=== PATIENT | male | born 1990 | race Two or more races ===

== ENCOUNTER → 2020-06-04 | Emergency (ER) | payer SELFPAY ==
[~2020-06-04] VITALS: Ht 177.8 cm; Wt 81.6 kg
[~2020-06-04] MED LIST: MORPHINE SULFATE 4 MG/ML SYR/VIAL IV ONE; PANTOPRAZOLE 40 MG/10 ML VIAL INJ IV STA; PROCHLORPERAZINE EDISYLATE 5 MG/ML 2ML VIAL IV ONE; SODIUM CHLORIDE 0.9% 1,000 ML IVB ONE
[2020-06-04 11:49] LABS: Basophils # (auto) 0 10 ^3/uL (0-0.2); Basophils % (auto) 0.3 % (0.0-2.0); Eosinophils # (auto) 0 10 ^3/uL (0-0.8); Eosinophils % (auto) 0.3 % (0.0-7.0); Hematocrit 41.9 % (41.0-53.0); Hemoglobin 14.1 g/dL (13.5-17.5); Lymphocytes # (auto) 0.9 10 ^3/uL (0.4-5.4); Lymphocytes % (auto) 13.3 % (10.0-50.0); Mean Corpuscular Hemoglobin 29.4 pg (28.0-32.0); Mean Corpuscular Hgb Conc. 33.7 g/dL (32.0-36.0); Mean Corpuscular Volume 87.2 fL (80.0-100.0); Monocytes # (auto) 0.3 10 ^3/uL (0-1.3); Monocytes % (auto) 4.7 % (0.0-12.0); Neutrophils # (auto) 5.3 10 ^3/uL (1.6-8.6); Neutrophils % (auto) 81.4 % (37.0-80.0); Nucleated Red Blood Cells % 0.1 %; Platelet Count (auto) 194 10^3/uL (140-450); Red Blood Cells 4.81 10^6/uL (4.5-5.90); Red Cell Distribution Width 13.3 % (11.8-14.3); White Blood Cell 6.5 10^3/uL (4.4-10.8)
[2020-06-04 12:07] LABS: Potassium 3.4 mmol/L (3.5-5.1)
[2020-06-04 12:12] LABS: Albumin 4.5 g/dL (3.4-5.0); BUN/Creatinine Ratio 10.2; Bilirubin, Total 0.7 mg/dL (0.2-1.0); Total Protein 7.5 g/dL (6.4-8.2)
[2020-06-04 15:32] VITALS: BP 117/70
== END | disposition home or self-care (01) ==
LOC: ER 10:54 → EDBD 10:54
DX: F12.188 Cannabis abuse with other cannabis-induced disorder (principal); R11.2 Nausea with vomiting, unspecified; R10.13 Epigastric pain
CPT/HCPCS: 36415; 80053; 83690; 85025; 96361; 96374; 96375; 99284; C9113; J0780; J2270; J7030

== ENCOUNTER 2020-06-11 11:45 | Emergency (ER) | payer MEDICAID, OTHER ==
[~2020-06-11] VITALS: Ht 177.8 cm; Wt 79.4 kg
[2020-06-11] MEDS ORDERED: ALUM & MAG HYDROX-SIMETH LIQ(MAALOX) 30 ML PO ONE (12:15)
[2020-06-11] MEDS ORDERED: LIDOCAINE VISCOUS 2% 15ML UD PO ONE (12:15)
[2020-06-11 13:25] LABS: Albumin 4.6 g/dL (3.4-5.0); Calcium 9.7 mg/dL (8.5-10.1); Magnesium 2.4 mg/dL (1.6-2.6)
[2020-06-11 13:28] LABS: BUN/Creatinine Ratio 8.9; Bilirubin, Total 1.2 mg/dL (0.2-1.0); Total Protein 8.1 g/dL (6.4-8.2)
[2020-06-11 13:36] LABS: Basophils # (auto) 0 10 ^3/uL (0-0.2); Basophils % (auto) 0.4 % (0.0-2.0); Eosinophils # (auto) 0 10 ^3/uL (0-0.8); Hemoglobin 14.9 g/dL (13.5-17.5); Lymphocytes # (auto) 1.2 10 ^3/uL (0.4-5.4); Lymphocytes % (auto) 13.6 % (10.0-50.0); Mean Corpuscular Hemoglobin 29.2 pg (28.0-32.0); Mean Corpuscular Hgb Conc. 33.9 g/dL (32.0-36.0); Mean Corpuscular Volume 86.2 fL (80.0-100.0); Monocytes # (auto) 0.4 10 ^3/uL (0-1.3); Monocytes % (auto) 4.5 % (0.0-12.0); Neutrophils # (auto) 7.5 10 ^3/uL (1.6-8.6); Neutrophils % (auto) 81.5 % (37.0-80.0); Nucleated Red Blood Cells % 0.1 %; Platelet Count (auto) 234 10^3/uL (140-450); Red Cell Distribution Width 13.4 % (11.8-14.3); White Blood Cell 9.2 10^3/uL (4.4-10.8)
[2020-06-11 13:41] LABS: Potassium 2.4 mmol/L (3.5-5.1)
[2020-06-11] MEDS ORDERED: POTASSIUM EFFERVESENT TAB 25 MEQ PO ONE (14:00)
[2020-06-11] MEDS ORDERED: POTASSIUM CHL 20MEQ/100ML 100 ML IV ONE (14:00)
[2020-06-11] MEDS ORDERED: ONDANSETRON HCL 4 MG/2 ML VIAL IV ONE (14:00)
[2020-06-11] MEDS ORDERED: SODIUM CHLORIDE 0.9% 1,000 ML IV ONE (14:00)
[2020-06-11] MEDS ORDERED: ACETAMINOPHEN 500 MG TAB PO ONE ×2 (17:36→17:45)
[2020-06-11] MEDS ORDERED: LORazepam 0.5 MG TAB PO ONE (17:45)
[2020-06-11] MEDS ORDERED: SODIUM CHLORIDE 0.9% 500 ML IV ONE (19:45)
[2020-06-11] MEDS: POTASSIUM CHL 20MEQ/100ML 100 ML IV SCH ×2 (20:14→23:19)
[2020-06-11] MEDS ORDERED: POTASSIUM CHL 20 Meq TABLET PO ONE (23:00)
[2020-06-12 01:01] VITALS: BP 106/50
== END 2020-06-12 02:38 | disposition home or self-care (01) ==
LOC: ER 11:45
DX: R10.13 Epigastric pain (principal); E87.6 Hypokalemia; F41.9 Anxiety disorder, unspecified
CPT/HCPCS: 36415; 74176; 80053; 82150; 83690; 83735; 84132; 85025; 96365; 96366; 96375; 99285; J2405; J3480; J7030